=== PATIENT | male | born 1995 | race Caucasian/White ===

== ENCOUNTER → 2020-02-16 | Day surgery (SDC) | payer OTHER ==
[~2020-02-16] MED LIST: ADDERALL 10 MG10 MG PO; NORCO 5-325 TA1 EAC1 PO
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
== END | disposition home or self-care (01) ==
LOC: M.SUR 06:14
PROVIDERS: ATTEND Surgery
DX: M79.5 Residual foreign body in soft tissue (principal); Z11.59 Encounter for screening for other viral diseases; Z98.890 Other specified postprocedural states; Z79.899 Other long term (current) drug therapy